=== PATIENT | male | born 1980 | race Caucasian/White ===

== ENCOUNTER → 2024-02-20 | Day surgery (SDC) | payer MEDICARE, OTHER ==
[~2024-02-20] MED LIST: HYDROmorphone (PF) 1 MG/ML ONE; HYDROmorphone 0.5 MG/0.5 ML SYRINGE IVP PRN; KETOROLAC 30 MG/ML 1 ML VIAL ONE; PROPOFOL 10 MG/ML 20 ML VIAL IV ONE; SUCCINYLCHOLINE CHLORIDE 200 MG/10 ML VIAL IV ONE; fentaNYL (PF) 50 MCG/ML 2 ML AMP ONE; metroNIDAZOLE-NS PMX 500 MG in SALINE 1 100ML.BAG IVPB PRN
[2024-02-20] MEDS: IV FLUID CONTINUATION 1,000 ML IV ONE (10:17)
[2024-02-20] MEDS: ACETAMINOPHEN TAB 500 MG TAB PO PRN (10:29)
[2024-02-20] MEDS: HEPARIN SODIUM,PORCINE 5,000 UNIT/ML 1 ML VIAL SQ PRN (10:29)
[2024-02-20] MEDS: LACTATED RINGERS 1,000 ML IV SCH (10:29)
[2024-02-20] MEDS: ONDANSETRON 4 MG/2 ML VIAL IVP STA (10:30)
[2024-02-20] MEDS: DEXAMETHASONE SOD PHOSPHATE 4 MG/ML 1 ML VIAL IVP STA (10:31)
[2024-02-20] MEDS: LIDOCAINE 1%-EPI 1:100,000 20 ML VIAL SQ ONE (11:40)
[2024-02-20] MEDS: LACTATED RINGERS 1,000 ML IV ONE (11:50)
[2024-02-20 12:22] VITALS: RESP 20; TEMP 97.2
--- NOTE | 2024-02-20 12:25 | P.OP ---
Date of Procedure: 02/20/24 Preoperative Diagnosis: Anal condyloma Postoperative Diagnosis: Anal condyloma Procedure(s) Performed: Excision of anal condyloma Anesthesia: FLORA Surgeon: Godfrey King Estimated Blood Loss (ml): 5 Pathology: other (Anal condyloma) Condition: stable Disposition: PACU Description of Procedure: Patient was placed on the operative table in the prone jackknife position. He had received general anesthesia. His anus is prepped and review sterile fashion. Patient significant anal condyloma of the anus. The condyloma was grasped with a pair of Allis clamps. Then using robotic scissors the anal, was excised. The specimen sent to pathology. Several bleeding spots were coag ulated electrocautery. Patient sterile dressing applied. Patient sent to recovery in stable condition.
[2024-02-20 13:20] VITALS: BP 117/76; PULSE 100
== END | disposition home or self-care (01) ==
LOC: OR 09:41
PROVIDERS: ATTEND Surgery
CPT/HCPCS: 88305

== ENCOUNTER 2024-03-20 07:32 | Day surgery (SDC) | payer MEDICARE, OTHER ==
[2024-03-18 16:17] VITALS: BMI 23.4
[2024-03-20 08:02] VITALS: RESP 16; TEMP 97.1
[2024-03-20] MEDS: NA PHOS,M-B/NA PHOS,DI-BA 133 ML ENEMA RECTAL STA (08:11)
[2024-03-20] MEDS: IV FLUID CONTINUATION 1,000 ML IV ONE (08:13)
[2024-03-20] MEDS: LACTATED RINGERS 1,000 ML IV SCH (08:17)
[2024-03-20] MEDS: LIDOCAINE 1% (10MG/ML) FOR IV START INTRADERMA PRN (08:25)
[2024-03-20] MEDS ORDERED: PROPOFOL 10 MG/ML 20 ML VIAL IV ONE (09:07)
--- NOTE | 2024-03-20 09:09 | P.GSHP ---
History of Present Illness H&P Date: 03/20/24 Chief Complaint: Squamous cell carcinoma anus Is a 44-year-old male who presents today for anoscopy. Patient has received diagnosis squamous cell carcinoma anus. Past Medical History Past Medical History: GERD/Reflux, Seizure Disorder, Skin Disorder Additional Past Medical History / Comment(s): Recent diagnosis of anal cancer. Anal warts. Psoriasis. Hx seizures, last seizure 20 yrs ago. History of Any Multi-Drug Resistant Organisms: None Reported Past Surgical History: Appendectomy Additional Past Surgical History / Comment(s): Anal warts removed. Past Anesthesia/Blood Transfusion Reactions: No Reported Reaction Smoking Status: Current every day smoker - Past Family History Father Family Medical History: No Reported History Medications and Allergies Home Medications Medication Instructions Recorded Confirmed Type Divalproex [Depakote] 1,000 mg PO HS 02/19/24 03/20/24 History Divalproex [Depakote] 500 mg PO DAILY 02/19/24 03/20/24 History Ibuprofen 600 mg PO DIRECTED PRN 02/19/24 03/20/24 History cloZAPine [Clozaril] 100 mg PO DAILY 02/19/24 03/20/24 History cloZAPine [Clozaril] 300 mg PO HS 02/19/24 03/20/24 History Allergies Allergy/AdvReac Type Severity Reaction Status Date / Time haloperidol [From Haldol] Allergy Anaphylaxis Verified 03/18/24 15:58 Surgical - Exam Vital Signs Temp Pulse Resp BP Pulse Ox 97.1 F L 95 16 126/66 93 L 03/20/24 07:58 03/20/24 07:58 03/20/24 07:58 03/20/24 07:58 03/20/24 07:58 - General well developed, well nourished, no distress - Eyes PERRL - ENT normal pinna - Neck no masses - Respiratory normal expansion - Cardiovascular Rhythm: regular - Abdomen Abdomen: soft, non tender Assessment and Plan Assessment: Squamous cell carcinoma anus. Patient was scheduled for endoscopy.
--- NOTE | 2024-03-20 09:22 | P.OP ---
Date of Procedure: 03/20/24 Preoperative Diagnosis: Squamous cell carcinoma anus Postoperative Diagnosis: Squamous cell carcinoma anus Procedure(s) Performed: anoscopy Anesthesia: MAC Surgeon: Godfrey King Pathology: none sent Condition: stable Disposition: PACU Description of Procedure: The patient was placed on the endoscopy table in the lateral position. He received IV sedation. The sigmoidoscope was placed patient anus and passed in the rectum. The patient a poor prep. There is a large amount of stool in the rectum. Scope was withdrawn through the rectum. The anus was visualized. There was no extension of the tumor above the dentate line. The squamous of carcinoma appeared to be located exterior to the dentate line. Scope was then withdrawn from the patient.
[2024-03-20 10:26] VITALS: BP 119/78; PULSE 87
== END 2024-03-20 10:24 | disposition home or self-care (01) ==
LOC: ORWHC2ENDO 07:32 → EEVIPCON 07:32 → ORWHC2ENDO 10:24
PROVIDERS: ATTEND Surgery
DX: C21.0 Malignant neoplasm of anus, unspecified (principal); K21.9 Gastro-esophageal reflux disease without esophagitis; G40.909 Epilepsy, unspecified, not intractable, without status epilepticus; L40.9 Psoriasis, unspecified; F17.210 Nicotine dependence, cigarettes, uncomplicated; Z79.899 Other long term (current) drug therapy; Z90.49 Acquired absence of other specified parts of digestive tract; Z88.8 Allergy status to other drugs, medicaments and biological substances
CPT/HCPCS: 46600; J2704; 45330